=== PATIENT | female | born 1945 | race Caucasian/White ===

== ENCOUNTER → 2017-07-03 | Outpatient (CLI) | payer BC ==
[~2017-07-03] MED LIST: ALEN70; ASACOL HD800 MG PO; ASPI81EC; ASPI81EC PO; ATEN25 PO; ATOM40; Antivert25 MG PO; Aspirin EC81 MG PO; BONIVA; CARI350; CARI350 PO; CLON.5; CLON.5 PO; DULO30 PO; ESTRTP; GLUCOSAMINE/MSM; HYDMOR4 PO; HYOS.125 SL; MECL25; MECL25 PO; MESA250ER PO; Norco 10-325 T1 EACH PO; OXYC5 PO; PENNAL50; PROM25; PROM25 PO; PROP65 PO; QUALAQUIN PO; QUIN325; RISE35 PO; RXHYOS.125; SOMA350 MG PO; TRAZ100; TRAZ100 PO; TRAZ50 PO
== END ==
LOC: LAB 19:07
DX: N23 Unspecified renal colic (principal)
CPT/HCPCS: 87077; 87086; 87186

== ENCOUNTER → 2019-03-10 | Outpatient (CLI) | payer BC ==
[2019-03-10 08:58] LABS: Source, Urine Clean Catch
[2019-03-10 14:02] LABS: Bilirubin, Urine Neg (Neg); Blood, Urine 1+ (Neg); Glucose Qualitative, Urine Neg (Neg); Ketones, Urine Neg (Neg); Leukocyte Esterase, Urine 1+ (Neg); Nitrite, Urine Neg (Neg); Protein, Urine Neg (Neg); Urobilinogen, Urine NORM (Normal)
[2019-03-10 14:31] LABS: Appearance, Urine Hazy (Clear); Color, Urine Yellow (P-Yellow)
[2019-03-10 14:33] LABS: Bacteria Many /hpf; Squamous Epithelial Cells Few /hpf (Few); White Blood Cells, Urine 25-50 /hpf (0-5)
== END ==
LOC: LAB SHORT 08:55 → LAB 08:55 → LAB FUT 09-29 16:25
PROVIDERS: Family Medicine
DX: R30.0 Dysuria (principal)
CPT/HCPCS: 81001; 87077; 87086; 87186

== ENCOUNTER → 2019-04-05 | Outpatient (CLI) | payer BC | LOC: LAB SHORT 18:13 → LAB 18:13 | DX: K51.90 Ulcerative colitis, unspecified, without complications (principal); R19.7 Diarrhea, unspecified | CPT/HCPCS: 87493 ==

== ENCOUNTER 2019-04-08 14:51 | Emergency (ER) | payer BC ==
[~2019-04-08] VITALS: Ht 165.1 cm; Wt 45.4 kg
[2019-04-08 16:34] LABS: BASOPHILS ABSOLUTE AUTO 0.04 K/mm3 (0.00-0.23); BASOPHILS PERCENT AUTO 1 % (0-2); EOSINOPHILS ABSOLUTE AUTO 0.04 K/mm3 (0.00-0.68); EOSINOPHILS PERCENT AUTO 1 % (0-6); Hemoglobin 12.4 g/dL (11.5-16.0); IMMATURE GRAN ABSOLUTE AUTO 0.03 K/mm3 (0.00-0.10); IMMATURE GRAN PERCENT AUTO 0 % (0-1); LYMPHOCYTES ABSOLUTE AUTO 1.53 K/mm3 (0.84-5.20); LYMPHOCYTES PERCENT AUTO 20 % (21-46); MONOCYTES PERCENT AUTO 7 % (4-13); Mean Corpuscular HGB 31.7 pg (26.0-34.0); Mean Corpuscular HGB Conc 33.5 g/dL (31.5-36.5); Mean Corpuscular Volume 95 fL (80-100); Mean Platelet Volume 8.5 fL (9.1-12.4); NEUTROPHILS ABSOLUTE AUTO 5.56 K/mm3 (1.96-9.15); NEUTROPHILS PERCENT AUTO 72 % (41-73); Platelet Count 287 K/mm3 (150-400); RDW Coefficient Variation 12.7 % (11.7-14.2); RDW Standard Deviation 43.8 fL (35.1-46.3); Red Blood Cell Count 3.91 M/mm3 (3.80-5.20)
[2019-04-08 16:58] LABS: Alanine Aminotransfer (ALT/SGP 20 U/L (12-78); Albumin, Blood 3.5 g/dL (3.4-5.0); Alk Phos 59 U/L (50-136); Anion Gap 4 mmol/L (6-16); Aspartate Aminotrans (AST/SGOT 15 U/L (12-37); Bilirubin, Total 0.4 mg/dL (0.1-1.0); Blood Urea Nitrogen 20 mg/dL (8-24); CO2, Blood 32 mmol/L (21-32); Calcium, Blood 8.9 mg/dL (8.5-10.1); Chloride, Blood 103 mmol/L (98-108); Globulin, Blood 3.5 g/dL (2.2-4.0); Glomerular Filtration Rate >60 (60-); Glucose, Blood 123 mg/dL (70-99); Potassium, Blood 3.5 mmol/L (3.5-5.5); Sodium, Blood 139 mmol/L (136-145)
== END 2019-04-08 22:10 | disposition home or self-care (01) ==
LOC: ER 14:51
PROVIDERS: Physician Assistant
DX: K51.90 Ulcerative colitis, unspecified, without complications (principal); I25.2 Old myocardial infarction; J44.9 Chronic obstructive pulmonary disease, unspecified; M79.7 Fibromyalgia; Z88.5 Allergy status to narcotic agent; Z88.2 Allergy status to sulfonamides; Z88.8 Allergy status to other drugs, medicaments and biological substances; Z91.011 Allergy to milk products; Z88.6 Allergy status to analgesic agent; Z79.82 Long term (current) use of aspirin; Z79.899 Other long term (current) drug therapy
CPT/HCPCS: 36415; 74177; 80053; 83690; 85025; 99284-25; Q9967

== ENCOUNTER 2020-03-27 16:20 | Emergency (ER) | payer BC ==
[~2020-03-27] VITALS: Ht 165.1 cm; Wt 47.6 kg
[2020-03-27 17:41] LABS: BASOPHILS ABSOLUTE AUTO 0.05 K/mm3 (0.00-0.23); BASOPHILS PERCENT AUTO 1 % (0-2); EOSINOPHILS ABSOLUTE AUTO 0.14 K/mm3 (0.00-0.68); EOSINOPHILS PERCENT AUTO 2 % (0-6); Hemoglobin 12.4 g/dL (11.5-16.0); IMMATURE GRAN ABSOLUTE AUTO 0.02 K/mm3 (0.00-0.10); IMMATURE GRAN PERCENT AUTO 0 % (0-1); LYMPHOCYTES ABSOLUTE AUTO 2.53 K/mm3 (0.84-5.20); LYMPHOCYTES PERCENT AUTO 29 % (21-46); MONOCYTES ABSOLUTE AUTO 1.08 K/mm3 (0.16-1.47); MONOCYTES PERCENT AUTO 13 % (4-13); Mean Corpuscular HGB Conc 32.6 g/dL (31.5-36.5); Mean Corpuscular Volume 98 fL (80-100); Mean Platelet Volume 8.7 fL (9.1-12.4); NEUTROPHILS ABSOLUTE AUTO 4.83 K/mm3 (1.96-9.15); NEUTROPHILS PERCENT AUTO 56 % (41-73); Platelet Count 297 K/mm3 (150-400); RDW Coefficient Variation 13.6 % (11.7-14.2); RDW Standard Deviation 48.7 fL (35.1-46.3); Red Blood Cell Count 3.88 M/mm3 (3.80-5.20); White Blood Cell Count 8.65 K/mm3 (4.00-11.30)
[2020-03-27 18:00] LABS: Alanine Aminotransfer (ALT/SGP 17 U/L (12-78); Albumin, Blood 3.9 g/dL (3.4-5.0); Albumin/Globulin Ratio 1.1 (0.8-1.8); Alk Phos 65 U/L (50-136); Anion Gap 4 mmol/L (6-16); Aspartate Aminotrans (AST/SGOT 13 U/L (12-37); Bilirubin, Total 0.4 mg/dL (0.1-1.0); Blood Urea Nitrogen 20 mg/dL (8-24); Bun/Creatinine Ratio 29.5 (12.0-20.0); CO2, Blood 30 mmol/L (21-32); CPK Creatine Kinase 56 U/L (26-193); Calcium, Blood 10.1 mg/dL (8.5-10.1); Chloride, Blood 108 mmol/L (98-108); Creatinine, Blood 0.68 mg/dL (0.40-1.00); Globulin, Blood 3.6 g/dL (2.2-4.0); Glomerular Filtration Rate >60 (60-); Glucose, Blood 102 mg/dL (70-99); Potassium, Blood 3.9 mmol/L (3.5-5.5); Sodium, Blood 142 mmol/L (136-145); Total Protein, Blood 7.5 g/dL (6.4-8.2)
== END 2020-03-27 20:06 | disposition home or self-care (01) ==
LOC: ER 16:20
PROVIDERS: Physician Assistant
DX: M54.5 Low back pain (principal); G89.29 Other chronic pain; G89.18 Other acute postprocedural pain; I25.2 Old myocardial infarction; J44.9 Chronic obstructive pulmonary disease, unspecified; Z98.890 Other specified postprocedural states; Z88.5 Allergy status to narcotic agent; Z88.6 Allergy status to analgesic agent; Z88.2 Allergy status to sulfonamides; Z88.8 Allergy status to other drugs, medicaments and biological substances; Z91.011 Allergy to milk products; Z91.09 Other allergy status, other than to drugs and biological substances; Z79.899 Other long term (current) drug therapy; Z79.82 Long term (current) use of aspirin
CPT/HCPCS: 36415; 72100; 80053; 82550; 85025; 99283-25

== ENCOUNTER 2020-04-07 16:53 | Emergency (ER) | payer BC ==
[~2020-04-07] VITALS: Ht 165.1 cm; Wt 48.1 kg
== END 2020-04-07 18:09 | disposition home or self-care (01) ==
LOC: ER 16:53
DX: M54.41 Lumbago with sciatica, right side (principal); J44.9 Chronic obstructive pulmonary disease, unspecified; I25.2 Old myocardial infarction; Z88.5 Allergy status to narcotic agent; Z88.6 Allergy status to analgesic agent; Z91.09 Other allergy status, other than to drugs and biological substances; Z88.8 Allergy status to other drugs, medicaments and biological substances; Z79.899 Other long term (current) drug therapy
CPT/HCPCS: 99282

== ENCOUNTER → 2020-05-02 | Outpatient (CLI) | payer BC ==
[2020-05-02 17:53] LABS: BASOPHILS ABSOLUTE AUTO 0.05 K/mm3 (0.00-0.23); BASOPHILS PERCENT AUTO 1 % (0-2); EOSINOPHILS ABSOLUTE AUTO 0.15 K/mm3 (0.00-0.68); EOSINOPHILS PERCENT AUTO 3 % (0-6); Hematocrit 34.9 % (33.0-51.0); Hemoglobin 11.4 g/dL (11.5-16.0); IMMATURE GRAN PERCENT AUTO 0 % (0-1); LYMPHOCYTES ABSOLUTE AUTO 2.82 K/mm3 (0.84-5.20); LYMPHOCYTES PERCENT AUTO 47 % (21-46); MONOCYTES ABSOLUTE AUTO 0.88 K/mm3 (0.16-1.47); MONOCYTES PERCENT AUTO 15 % (4-13); Mean Corpuscular HGB 32.4 pg (26.0-34.0); Mean Corpuscular HGB Conc 32.7 g/dL (31.5-36.5); Mean Corpuscular Volume 99 fL (80-100); Mean Platelet Volume 9.1 fL (9.1-12.4); NEUTROPHILS ABSOLUTE AUTO 2.08 K/mm3 (1.96-9.15); NEUTROPHILS PERCENT AUTO 35 % (41-73); Platelet Count 261 K/mm3 (150-400); RDW Coefficient Variation 13.5 % (11.7-14.2); RDW Standard Deviation 48.8 fL (35.1-46.3); Red Blood Cell Count 3.52 M/mm3 (3.80-5.20); White Blood Cell Count 5.98 K/mm3 (4.00-11.30)
== END ==
LOC: LAB 14:36 → LAB SHORT 14:36 → LAB FUT 02-15 12:45
PROVIDERS: Family Medicine
DX: R30.0 Dysuria (principal); R50.9 Fever, unspecified
CPT/HCPCS: 36415; 85025; 85651; 86430

== ENCOUNTER 2020-08-08 22:47 | Emergency (ER) | payer BC ==
[~2020-08-08] VITALS: Ht 165.1 cm; Wt 44.0 kg
== END 2020-08-09 01:29 | disposition home or self-care (01) ==
LOC: ER 22:47
DX: M46.1 Sacroiliitis, not elsewhere classified (principal); I25.2 Old myocardial infarction; J44.9 Chronic obstructive pulmonary disease, unspecified; Z88.5 Allergy status to narcotic agent; Z88.6 Allergy status to analgesic agent; Z88.8 Allergy status to other drugs, medicaments and biological substances; Z79.899 Other long term (current) drug therapy
CPT/HCPCS: 73502; 99283-25; A9270

== ENCOUNTER 2021-01-30 21:02 | Emergency (ER) | payer BC ==
[~2021-01-30] VITALS: Ht 165.1 cm; Wt 44.7 kg
[2021-01-30] MEDS ORDERED: ERYT1OIN LEFTEYE (23:52)
[2021-01-31] MEDS ORDERED: KLONOPIN0.5 M3 PO (00:04)
[2021-01-31] MEDS ORDERED: CYMBALTA20 M2 PO (00:04)
[2021-01-31] MEDS ORDERED: PRILOSEC OTC20 MG PO (00:06)
[2021-01-31] MEDS ORDERED: NEURONTIN300 MG PO (00:07)
== END 2021-01-31 00:03 | disposition home or self-care (01) ==
LOC: ER 21:02
DX: S05.02XA Injury of conjunctiva and corneal abrasion without foreign body, left eye, initial encounter (principal); I10 Essential (primary) hypertension; K21.9 Gastro-esophageal reflux disease without esophagitis; J44.9 Chronic obstructive pulmonary disease, unspecified; Z88.5 Allergy status to narcotic agent; Z88.6 Allergy status to analgesic agent; W51.XXXA Accidental striking against or bumped into by another person, initial encounter
CPT/HCPCS: 99283; A9270

== ENCOUNTER 2021-06-23 00:05 | Observation (INO) | payer BC ==
[~2021-06-23] VITALS: Ht 165.1 cm; Wt 43.2 kg
[~2021-06-23 00:05] MED LIST changes: -Antivert25 MG PO; +CYMBALTA20 M2 PO; +ERYT1OIN LEFTEYE; +KLONOPIN0.5 M3 PO; +NEURONTIN300 MG PO; +PRILOSEC OTC20 MG PO
[2021-06-23 00:37] LABS: BASOPHILS ABSOLUTE AUTO 0.02 K/mm3 (0.00-0.23); BASOPHILS PERCENT AUTO 0 % (0-2); EOSINOPHILS ABSOLUTE AUTO 0.02 K/mm3 (0.00-0.68); EOSINOPHILS PERCENT AUTO 0 % (0-6); Hematocrit 36.4 % (33.0-51.0); Hemoglobin 12.1 g/dL (11.5-16.0); IMMATURE GRAN ABSOLUTE AUTO 0.02 K/mm3 (0.00-0.10); IMMATURE GRAN PERCENT AUTO 0 % (0-1); LYMPHOCYTES ABSOLUTE AUTO 1.36 K/mm3 (0.84-5.20); LYMPHOCYTES PERCENT AUTO 16 % (21-46); MONOCYTES ABSOLUTE AUTO 0.95 K/mm3 (0.16-1.47); MONOCYTES PERCENT AUTO 11 % (4-13); Mean Corpuscular HGB 33.6 pg (26.0-34.0); Mean Corpuscular HGB Conc 33.2 g/dL (31.5-36.5); Mean Corpuscular Volume 101 fL (80-100); NEUTROPHILS ABSOLUTE AUTO 6.42 K/mm3 (1.96-9.15); NEUTROPHILS PERCENT AUTO 73 % (41-73); Platelet Count 330 K/mm3 (150-400); RDW Coefficient Variation 13.8 % (11.7-14.2); RDW Standard Deviation 51.9 fL (35.1-46.3); White Blood Cell Count 8.79 K/mm3 (4.00-11.30)
[2021-06-23 00:57] LABS: Alanine Aminotransfer (ALT/SGP 20 U/L (12-78); Albumin, Blood 3.3 g/dL (3.4-5.0); Albumin/Globulin Ratio 1.1 (0.8-1.8); Alk Phos 81 U/L (50-136); Anion Gap 5 mmol/L (6-16); Aspartate Aminotrans (AST/SGOT 22 U/L (12-37); Bilirubin, Total 0.5 mg/dL (0.1-1.0); Blood Urea Nitrogen 15 mg/dL (8-24); Bun/Creatinine Ratio 24.4 (12.0-20.0); CO2, Blood 30 mmol/L (21-32); Calcium, Blood 8.9 mg/dL (8.5-10.1); Chloride, Blood 106 mmol/L (98-108); Creatinine, Blood 0.61 mg/dL (0.40-1.00); Globulin, Blood 3.1 g/dL (2.2-4.0); Glomerular Filtration Rate >60 (60-); Glucose, Blood 126 mg/dL (70-99); Magnesium, Blood 1.7 mg/dL (1.6-2.4); Potassium, Blood 3.5 mmol/L (3.5-5.5); Sodium, Blood 141 mmol/L (136-145); Total Protein, Blood 6.4 g/dL (6.4-8.2); Troponin I <0.015 ng/mL (0.000-0.040)
[2021-06-23 01:45] LABS: Source, Urine Clean Catch
[2021-06-23 01:49] LABS: Bilirubin, Urine Neg (Neg); Blood, Urine 5+ (Neg); Glucose Qualitative, Urine Neg (Neg); Ketones, Urine 1+ (Neg); Leukocyte Esterase, Urine 3+ (Neg); Nitrite, Urine Neg (Neg); Protein, Urine 2+ (Neg); Urobilinogen, Urine NORM (Normal)
[2021-06-23 01:56] LABS: Appearance, Urine Hazy (Clear); Bacteria Mod /hpf; Color, Urine Yellow (P-Yellow); Red Blood Cells, Urine 0-2 /hpf (0-2); Squamous Epithelial Cells Not Seen /hpf (Few); White Blood Cells, Urine TNTC /hpf (0-5)
--- NOTE | 2021-06-23 12:09 | NUR ---
echocardiogram complete
[2021-06-23] MEDS ORDERED: PROM25 PO (14:42)
[2021-06-23] MEDS ORDERED: CALCIUM 600 +1 EA11 PO (14:42)
[2021-06-23] MEDS ORDERED: FISH OIL 1,2001 EAC7 PO (14:43)
[2021-06-23] MEDS ORDERED: ANASPAZ0.125 MG PO (14:44)
[2021-06-23] MEDS ORDERED: BENADRYL25 MG PO (14:45)
--- NOTE | 2021-06-23 18:40 | NUR ---
SHIFT SUMMARY: PT A/O X 4 STANDBY ASSIST. PT COOPERATIVE WITH CARE. PT REPORTS PAIN IN NECK, UPPER BACK AND REPORTS DIFFICULTY USING LEFT ARM. PT ACCIDENTALLY PULLED IV OUT WHEN GETTING BACK TO BED FROM GOING TO THE BATHROOM. ATTEMPTED TWO TIMES TO PLACE NEW IV AND BOTH TIMES THE VEINS BLEW. REPORTED TO ONCOMING RN AND PLASTIC MOULD MAKER PT NEEDS NEW IV. PT HAS NOT HAD BM SINCE LAST NIGHT AND REPORTS SHE DOES NOT FEEL LIKE SHE NEEDS TO HAVE BM. SHE REPORTS SHE HAS BM EVERY FEW DAYS HER NORMAL. PT EATING DINNER AND DID NOT HAVE ANY GI COMPLAINTS AT THAT TIME. NO ACUTE CONCERNS AT THIS TIME.
--- NOTE | 2021-06-23 23:41 | NUR ---
Patient has made three trips this evening to the bathroom feeling like she was going to have "explosive stools." Each time, although she did pass a lot of gas, she was unable to pass any stool. Patient was treated for her chronic neck and upper back pain with her regular bedtime meds for which she did not want her norco at bedtime
[2021-06-24 05:07] LABS: Hematocrit 35.6 % (33.0-51.0); Hemoglobin 11.6 g/dL (11.5-16.0); Mean Corpuscular HGB 33.3 pg (26.0-34.0); Mean Corpuscular HGB Conc 32.6 g/dL (31.5-36.5); Mean Corpuscular Volume 102 fL (80-100); Mean Platelet Volume 9.3 fL (9.1-12.4); Platelet Count 322 K/mm3 (150-400); RDW Coefficient Variation 14.1 % (11.7-14.2); RDW Standard Deviation 53.3 fL (35.1-46.3); Red Blood Cell Count 3.48 M/mm3 (3.80-5.20); White Blood Cell Count 7.32 K/mm3 (4.00-11.30)
[2021-06-24 05:31] LABS: Anion Gap 6 mmol/L (6-16); Blood Urea Nitrogen 11 mg/dL (8-24); Bun/Creatinine Ratio 19.1 (12.0-20.0); CO2, Blood 25 mmol/L (21-32); Calcium, Blood 8.2 mg/dL (8.5-10.1); Chloride, Blood 112 mmol/L (98-108); Creatinine, Blood 0.58 mg/dL (0.40-1.00); Glomerular Filtration Rate >60 (60-); Glucose, Blood 92 mg/dL (70-99); Phosphorus, Blood 2.4 mg/dL (2.5-4.9); Potassium, Blood 3.8 mmol/L (3.5-5.5); Sodium, Blood 143 mmol/L (136-145)
--- NOTE | 2021-06-24 07:48 | NUR ---
Nadine had a reasonably good night. She was up to the bathroom 3-4 times and had no stool overnight. She did pass a lot of gas, and the possibility of a vagal reaction on the toilet at home occured as a possibility for her syncopal episode
--- NOTE | 2021-06-24 12:30 | NUR ---
VO RECEIVED FROM DR. WEEKS TO DISCHARGE PT WITH AMPICILLIN 500 MG PO Q6 HOURS X 5DAYS TO TREAT UTI. ORDER CALLED TO PHARMACY.
--- NOTE | 2021-06-24 14:42 | NUR ---
DISCHARGE SUMMARY: PT A/O X 4 IND AT TIME OF DISCHARGE. DISCUSSED DISCHARGE PLAN INSTRUCTIONS AND MEDICATIONS WITH PT. PT WILL CALL TO MAKE AN APPT SINCE HER PCP IS NO LONGER AVAILABLE. CALLED IN PRESCRIPTION FOR AMPICILLIN TO [facility] PER HER REQUEST. PT VU OF INSTRUCTIONS. ASSISTED PT WITH PACKING UP BELONGINGS AND PT ESCORTED VIA WC BY RUFUS RUBALCAVA TO [facility]. PICKED PT UP.
== END 2021-06-24 14:10 | disposition home or self-care (01) ==
LOC: ER 00:05 → MEDS 00:06 → ERHOLD 00:06 → MEDS 14:16
PROVIDERS: Emergency Medicine; Internal Medicine; ADMIT Family Medicine
DX: R55 Syncope and collapse (principal); R10.12 Left upper quadrant pain; R19.7 Diarrhea, unspecified; R82.90 Unspecified abnormal findings in urine; I10 Essential (primary) hypertension; J44.9 Chronic obstructive pulmonary disease, unspecified; M79.7 Fibromyalgia; K21.9 Gastro-esophageal reflux disease without esophagitis; R00.0 Tachycardia, unspecified; E86.0 Dehydration; E43 Unspecified severe protein-calorie malnutrition; Z68.1 Body mass index [BMI] 19.9 or less, adult; Z88.6 Allergy status to analgesic agent; Z91.011 Allergy to milk products; Z88.5 Allergy status to narcotic agent; Z88.8 Allergy status to other drugs, medicaments and biological substances; Z91.048 Other nonmedicinal substance allergy status
CPT/HCPCS: 36415; 71045; 74176; 80053; 80069; 81001; 83605; 83735; 83880; 84443; 84484; 85025; 85027; 87077; 87086; 87186; 93005; 93010; 93306; 96365; 96372; 96375; 97110; 97162; 99285-25; A9270; G0378; J0360; J0696; J1650; J7030

== ENCOUNTER → 2021-08-15 | Outpatient (CLI) | payer BC ==
[~2021-08-15] MED LIST changes: +ANASPAZ0.125 MG PO; +BENADRYL25 MG PO; +CALCIUM 600 +1 EA11 PO; +FISH OIL 1,2001 EAC7 PO
[2021-08-17 13:01] LABS: C DIFFICILE DNA POSITIVE (Negative)
== END | disposition home or self-care (01) ==
LOC: LAB SHORT 16:15 → LAB 16:15
PROVIDERS: Internal Medicine
DX: R19.7 Diarrhea, unspecified (principal)
CPT/HCPCS: 87324; 87493